=== PATIENT | female | born 1980 | race African-American/Black ===

== ENCOUNTER 2020-04-10 17:28 | Emergency (ER) | payer OTHER, SELFPAY ==
--- NOTE | 2020-04-10 17:38 | ED.SKABFB ---
HPI - Skin/Abscess/Foreign Bdy General Chief complaint: Skin/Abscess/Foreign Body Stated complaint: rash History of Present Illness HPI narrative: This a 39-year-old comes in complaining of itching that she had on her bilateral hands and in between her fingers is been going on for over a week but increasingly becoming more itchy. Patient states now that her feet and her heels are very itchy. Patient states that she thought it was the soap but is only on her hands in between her fingers and is going up her arm is very itchy at nighttime Related Data Allergies Allergy/AdvReac Type Severity Reaction Status Date / Time No Known Allergies Allergy Verified 04/10/20 17:45 Review of Systems Review of Systems: Narrative: CONSTITUTIONAL: Denies fever, chills, or sweats. EYES: Denies visual changes, redness, or discharge. ENT: Denies rhinorrhea, congestion, sore throat, or otalgia. CARDIOVASCULAR:Denies chest pain, palpitations, or edema. RESPIRATORY: Denies cough or dyspnea. GASTROINTESTINAL: Denies abdominal pain, nausea, vomiting, or diarrhea. GENITOURINARY: Denies dysuria or hematuria. SKIN: Reports rash or itching. MUSCULOSKELETAL:Denies back pain, joint pain, or myalgia. NEUROLOGIC: Denies headache, numbness, or weakness. PSYCHIATRIC:Denies anxiety or depression PMFSH Social History Social History Gender identity (if verbalized by the patient): Female Comments At time as signature, I have reviewed and agree with nursing past medical, social, surgical and family history. Please see nursing chart for further information. There is no relevant family history pertinent to the presenting complaint. Exam Narrative: Exam Narrative: GENERAL:Well-appearing, well-nourished, and in no acute distress. HEAD:Normocephalic, atraumatic. EYES: PERRLA and EOMI. ENT: Nares clear, no rhinorrhea or epistaxis. Mucous membranes moist. NECK: Supple. CHEST: Clear to auscultation. No respiratory distress. HEART: Regular rate and rhythm. No murmur heard. Normal peripheral pulses. ABDOMEN: Soft, nontender, nondistended, normal active bowel sounds. EXTREMITIES: Normal range of motion. No edema. SKIN: Warm, dry, no rash. Itching and fine pinpoint burrowing area in between fingers and feet and soles of the feet and palms of the hands NEURO: No focal deficits. Alert and oriented x3. MDM - Skin/Abscess/Foreign Bdy Differential Diagnosis Differential diagnosis: Likely urticaria, allergic reaction to drug, cellulitis, eczema, insect bites, impetigo, contact dermatitis and other Discharge Plan Discharge Clinical Impression: Urticaria, Exposure to scabies Patient Disposition: Home, Self-Care Condition: Stable Instructions: Antibiotic Form, Urticaria (ED), Scabies (ED), Acute Rash (ED) Additional Instructions: Use skin creams/lotion, such as those containing calamine or pramoxine to reduce itchiness Avoid scratching when possible to prevent worsening of the condition and disruption of the skin that could lead to bacterial infection To relieve itching, place a cool washcloth or some ice over the area that itches, rather than scratching Return to the office or seek ER visit if condition is not improving or worsens with fever, swelling, difficulty breathing or swallowing. Your skin may continue to itch for 2 or 3 weeks, even after the scabies mites are gone. [id number] antihistamines or cortisone cream may help relieve itching. Trim your fingernails so you do not spread any mites that are still alive after treatment. Do not scratch your skin. Scratches may cause a skin infection. A cool bath may also help relieve the itching. Prescriptions: New permethrin 5 % cream 1 applic TOPICAL ONCE Qty: 60 RF: 0 triamcinolone acetonide 0.05 % ointment 1 applic TOPICAL BID Qty: 430 RF: 0 Follow-up/Referrals: Jesus,Ariel Avalos MD [Primary Care Provider] - Time of Disposition: 18:03
[2020-04-10 17:39] VITALS: BP 109/64; PULSE 92; RESP 16; TEMP 36.7; O2SAT 100
== END 2020-04-10 18:06 | disposition home or self-care (01) ==
PROVIDERS: Emergency Provider Nurse Practitioner Family; PCP Family Medicine
DX: L50.9 Urticaria, unspecified (principal); Z20.7 Contact with and (suspected) exposure to pediculosis, acariasis and other infestations
CPT/HCPCS: 99213; G0463